=== PATIENT | female | born 1995 | race Caucasian/White ===

== ENCOUNTER 2018-07-25 10:04 | Emergency (ER) | payer OTHER, MEDICAID, SELFPAY ==
[2018-07-25 10:12] VITALS: BP 125/70; PULSE 88; RESP 13; TEMP 36.9; O2SAT 98
--- NOTE | 2018-07-25 10:42 | ED_ITS ---
HPI - URI/Sore Throat General Chief Complaint: Upper Respiratory Symptoms Stated Complaint: SORE THROAT, HEADACHE, FEVER Time Seen by Provider: 07/25/18 10:39 Source: patient Mode of arrival: ambulatory Limitations: no limitations History of Present Illness HPI Narrative: Patient is a 23-year-old is female who presents with body aches sore throat and cough for 4 days. She coughs every time she takes a deep breath . She denies any productive cough or shortness of breath. Her biggest complaint is her throat feeling so sore. She is able to swallow but it is extremely painful. She is a type 1 diabetic she has noticed that her glucose has been about 230 she has no ketones she has no nausea vomiting. Related Data Previous Rx's Medication Instructions Recorded albuterol sulfate 1 puff INHALATION Q4-6H PRN #8.5 07/25/18 gram Allergies Allergy/AdvReac Type Severity Reaction Status Date / Time Androgenic Anabolic Steroid Allergy Verified 07/25/18 10:17 cefazolin [From Ancef] Allergy Verified 07/25/18 10:16 Review of Systems Review of Systems ROS Unobtainable: All systems reviewed & are unremarkable except as noted in HPI and below Constitutional Reports chills, Reports fatigue, Reports fever(s), Denies lethargy, Reports poor appetite and Reports weakness Eyes Denies change in vision, Denies eye discharge, Denies irritation and Denies loss of vision ENT Ears, Nose, Mouth, and Throat: Denies facial pain, Reports sore throat and Denies throat swelling Cardiovascular Denies chest pain, Denies irregular heart rhythm, Denies lightheadedness, Denies palpitations, Denies dyspnea and Denies orthopnea Respiratory Reports cough, Denies hemoptysis, Denies dyspnea and Denies wheezing Gastrointestinal Gastrointestinal: Denies abdominal pain, Denies change in bowel habits, Denies diarrhea, Denies nausea and Denies vomiting Musculoskeletal Denies back pain, Denies muscle weakness, Denies numbness and Denies tingling Neurologic Denies loss of vision, Denies numbness, Denies tingling and Reports weakness Endocrine Reports fatigue and Denies palpitations Allergic/Immunologic Denies throat swelling and Denies wheezing [facility] Medical History Type 1 diabetes (Acute) Social History Smoking Status: Never smoker Social History Smoking Status: Never smoker Exam Initial Vital Signs Initial Vital Signs: Vital Signs Temperature 98.5 F 07/25/18 10:12 Pulse Rate 88 07/25/18 10:12 Respiratory Rate 13 07/25/18 10:12 Blood Pressure 125/70 07/25/18 10:12 Pulse Oximetry 98 07/25/18 10:12 GENERAL: Alert female does not appear to feel well HEENT: Head atraumatic,EOMI, pupils reactive, face symmetric, neck is supple no meningeal signs EARS: Tympanic membranes visualized, no erythema or bulging, no hemotympanum PHARYNX: No erythema, no tonsillar exudate, no cervical lymphadenopathy CARDIOVASCULAR: Regular rate and rhythm without murmurs, rubs or gallops. RESPIRATORY: Breath sounds equal bilaterally, no wheezes rales or rhonchi. ABDOMEN: Soft, nontender. Normoactive bowel sounds all 4 quadrants. No guarding or rebound. EXTREMITIES: Normal range of motion, no clubbing or edema. Neurovascularly intact NEUROLOGICAL: Alert and oriented x4.Normal gait and speech. Cranial nerves II through XII grossly intact. SKIN: Warm, dry, no laceration, no petechiae, no rashes or lesions. Course Orders Ordered: Discontinued Medications Albuterol (Ventolin) 2.5 mg INH NOW ONE Stop: 07/25/18 10:43 Last Admin: 07/25/18 10:47 Dose: 2.5 mg Vital Signs - 8 hr 07/25/18 10:12 07/25/18 10:47 Temperature 98.5 F Pulse Rate 88 80 Respiratory Rate 13 12 Blood Pressure 125/70 Pulse Oximetry 98 98 MDM - URI/Sore Throat Lab Data Lab Results 07/25/18 Range/Units 10:10 Influenza A & B (PCR) Cancelled Point of Care Testing Rapid Strep A Negative MDM Narrative Medical decision making narrative: Patient has no sign of DKA. She has had 4 days of symptoms at this time not candidate for Tamiflu. It is possible she has influenza. Recommend conservative treatment. Discharge Plan Departure Patient Disposition: Home Clinical Impression: Upper respiratory infection Qualifiers: URI type: unspecified viral URI Qualified Code(s): J06.9 - Acute upper respiratory infection, unspecified Discharge Date/Time: 07/25/18 11:41 Interventions: ED Discharge Assessment Last Done: 07/25/18 11:30 Instructions: Acute Bronchitis Activity Restrictions/Additional Instructions: *You have been diagnosed with upper respiratory infection *What to do: Rest, increase fluids, fever control *Continue to take medications as directed Albuterol 1-2 puffs every 4 hr if needed for coughing or shortness of breath *Follow up with your primary care provider in 2-3 days *Return to ER if you should have increasing shortness of breath difficulty breathing fever not controlled or any new, worsening or concerning symptoms Prescriptions: New albuterol sulfate 90 mcg/actuation HFA aerosol inhaler 1 puff INHALATION Q4-6H PRN (Reason: shortness of breath or wheezing) Qty: 8.5 RF: 0
[2018-07-25 10:47] VITALS: PULSE 80; RESP 12; O2SAT 98
[2018-07-25] MEDS: ALBUTEROL 2.5 MG/3 ML NEB (ADULT) INH (10:47)
== END 2018-07-25 11:41 | disposition home or self-care (01) ==
PROVIDERS: Emergency Provider Emergency Medicine
DX: J06.9 Acute upper respiratory infection, unspecified (principal)
CPT/HCPCS: 87880; 94640; 99283; J7613